=== PATIENT | female | born 1975 | race Caucasian/White ===

== ENCOUNTER 2016-11-10 12:00 | Emergency (ER) | payer OTHER ==
[2016-11-10 12:19] VITALS: TEMP 98.2
[2016-11-10] MEDS ORDERED: RALTEGRAVIR 400 MG TAB PO ONE (13:37)
--- NOTE | 2016-11-10 13:41 | EDPHY ---
H & P Stated Complaint: NEEDLE STICK R INDEX FINGER HPI/ROS: CHIEF COMPLAINT: Needlestick HISTORY OF PRESENT ILLNESS: Patient complains of needle stick to the left finger just prior to arrival. This was a syringe of lidocaine used for a dental procedure. The source patient is known to be hep C positive. The other diagnoses are uncertain. Patient says there was bleeding from the site. She immediately cleaned her hand. Her tetanus up-to-date. Minimally painful. She is only here for the possibility of exposure to blood borne illness. No other associated complaints or modifying factors. 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 Good signs of perfusion Skin: Warm and dry, no rash. Small area of ecchymosis on the left index finger consistent with her needle stick Extremities: Nontender, no pedal edema Psychiatric: Mood and affect normal DIFFERENTIAL DIAGNOSES: Including but not limited to needlestick, hep C exposure, HIV exposure, borne illness exposure MDM: 1:35 p.m. Needlestick with a source that is known to be positive for hep C. HIV status is thought to be negative but not definitively. I discussed the case with the on- call infectious disease physician Dr. Lino. She recommends laboratory studies that I have ordered. She also recommends post exposure prophylaxis for HIV including Truvada 1 tablet once daily for 30 days as well as raltegravir, 400 mg twice daily for 30 days. She would like the patient to be seen in her office in the next 1-2 days. Her office will contact the patient for follow- up. She recommends that the source pacing be drawn for HIV status. I have ordered the appropriate labs and medications. I will provide the prescriptions as well. The patient is to follow up with infectious disease and her [facility]. She is comfortable with this plan and discharged home stable condition. SUPERVISION: This patient was independently evaluated without direct examination by the attending physician. Case was discussed with attending physician. Case discussed with infectious disease, Dr. Lino Source: Patient Exam Limitations: No limitations - Personal History LMP (Females 10-55): 15-21 Days Ago Current Tetanus Diphtheria and Acellular Pertussis (TDAP): Yes Tetanus Vaccine Date: < 10 YEARS - Medical/Surgical History Hx Asthma: Yes Hx Chronic Respiratory Disease: No Hx Diabetes: No Hx Cardiac Disease: No Hx Renal Disease: No Hx Cirrhosis: No Hx Alcoholism: No Hx HIV/AIDS: No Hx Splenectomy or Spleen Trauma: No Other PMH: DENIES - Social History Smoking Status: Never smoked Constitutional: Initial Vital Signs Temperature (C) 98.2 F 11/10/16 12:17 Heart Rate 92 11/10/16 12:17 Respiratory Rate 16 11/10/16 12:17 Blood Pressure 131/73 H 11/10/16 12:17 O2 Sat (%) 97 11/10/16 12:17 O2 Delivery Mode Room Air Allergies/Adverse Reactions: SEASONAL Allergy (Uncoded 11/10/16 12:20) Home Medications: Medication Instructions Recorded Emtricitabine/Tenofovir (Tdf) 1 each PO DAILY #29 tablet 11/10/16 [Truvada 200 mg-300 mg Tablet] Raltegravir [Isentress] 400 mg PO BID #59 tab 11/10/16 Medical Decision Making - Data Points Laboratory Results: Laboratory Results 11/10/16 13:25 11/10/16 13:25 11/10/16 13:52 Hep C Genotype Amplif Undetected (Undetected) Medications Given: Discontinued Medications Emtricitabine/Tenofovir (Truvada) 1 tab PO DAILY@0800 MERLINE Stop: 05/10/17 13:36 Last Admin: 11/10/16 13:58 Dose: 1 tab Raltegravir (Isentress) 400 mg PO EDNOW ONE Stop: 11/10/16 13:38 Last Admin: 11/10/16 13:58 Dose: 400 mg Departure - Departure Disposition: Home, Routine, Self-Care Clinical Impression: Needlestick injury accident, Contact with and (suspected) exposure to viral hepatitis Condition: Good Instructions: Needle Stick Injuries (ED) Additional Instructions: 1. Follow up with infectious disease as discussed 2. Follow up with your worker's compensation [facility] for ongoing care and repeat laboratory studies 3. Medications as prescribed at the recommendation of Infectious Disease Referrals: AMRITA MELENDEZ [Other] - As per Instructions Charo Lino MD [Medical Doctor] - As per Instructions Prescriptions: Emtricitabine/Tenofovir (Tdf) [Truvada 200 mg-300 mg Tablet] 1 each PO DAILY # 29 tablet Raltegravir [Isentress] 400 mg PO BID #59 tab
[2016-11-10] MEDS ORDERED: EMTRICITABINE/TENOFOVIR 200MG/300MG TAB PO ONE (13:56)
[2016-11-10 14:00] LABS: % IMMATURE GRANULYOCYTES 0.5 % (0.0-1.1); ABSOLUTE IMMATURE GRANULOCYTES 0.05 10^3/uL (0.00-0.10); ADD DIFF? NO; ADD MORPH? NO; ADD SCAN? NO; ATYPICAL LYMPHOCYTE FLAG 0 (0-99); FRAGMENT RBC FLAG 0 (0-99); HEMATOCRIT 42.1 % (38.0-47.0); HEMOGLOBIN 14.1 g/dL (12.6-16.3); LEFT SHIFT FLG 0 (0-99); LIPEMIA HEMOLYSIS FLAG 80 (0-99); MEAN CELL HEMOGLOBIN 30.7 pg (27.9-34.1); MEAN CELL HEMOGLOBIN CONCENTR. 33.5 g/dL (32.4-36.7); MEAN CELL VOLUME 91.7 fL (81.5-99.8); MEAN PLATELET VOLUME 10.7 fL (8.7-11.7); PLATELET CLUMPS FLAG 0 (0-99); PLATELET COUNT 247 10^3/uL (150-400); RED BLOOD CELL COUNT 4.59 10^6/uL (4.18-5.33); RED CELL DISTRIBUTION WIDTH 12.1 % (11.5-15.2)
[2016-11-10 14:20] VITALS: BP 128/74; PULSE 84; RESP 18; O2SAT 98
[2016-11-10 14:39] LABS: ALANINE AMINOTRANSFERASE 29 IU/L (9-52); ALBUMIN 4.6 g/dL (3.5-5.0); ALKALINE PHOSPHATASE 71 IU/L (38-126); ANION GAP 14 mEq/L (8-16); ASPARTATE AMINOTRANSFERASE 20 IU/L (14-46); BILIRUBIN,TOTAL 0.4 mg/dL (0.1-1.4); BILIRUBIN-CONJUGATED 0.3 mg/dL (0.0-0.5); BILIRUBIN-UNCONJUGATED 0.1 mg/dL (0.0-1.1); CALCIUM 9.5 mg/dL (8.5-10.4); CARBON DIOXIDE 23 mEq/l (22-31); CHLORIDE 106 mEq/L (97-110); CREATININE 0.9 mg/dL (0.6-1.0); GLOMERULAR FILTRATION RATE > 60; GLUCOSE 95 mg/dL (70-100); POTASSIUM 3.7 mEq/L (3.5-5.2); SODIUM 143 mEq/L (134-144); TOTAL PROTEIN 7.7 g/dL (6.3-8.2)
[2016-11-11] MEDS ORDERED: EMTRICITABINE/TENOFOVIR 200MG/300MG TAB PO SCH (13:37)
[2016-11-12 13:49] LABS: HEPATITIS C GENOTYPING Undetected (Undetected)
== END 2016-11-10 14:20 | disposition home or self-care (01) ==
DX: S61.201A Unspecified open wound of left index finger without damage to nail, initial encounter (principal); W46.1XXA Contact with contaminated hypodermic needle, initial encounter
CPT/HCPCS: G0472

== ENCOUNTER 2017-07-14 13:23 | Emergency (ER) | payer OTHER ==
--- NOTE | 2017-07-14 15:22 | EDPHY ---
H & P Time Seen by Provider: 07/14/17 14:44 HPI/ROS: CHIEF COMPLAINT: Right flank pain HISTORY OF PRESENT ILLNESS: 41-year-old female presents with right flank pain. Onset of severe and sudden right flank pain this morning. Associated with diaphoresis and nausea. The pain lasted now about an hour and then completely resolved. She had 1 recurrent episode, but is now pain free. Urinary frequency and urgency throughout the day, resolved now. No prior history of kidney stones. No abdominal pain. REVIEW OF SYSTEMS: Constitutional: No fever, no chills Eyes: No visual changes ENT: No sore throat Respiratory: No cough, no shortness of breath Cardiac: No chest pain Gastrointestinal: no vomiting, no abdominal pain Musculoskeletal: No leg pain or swelling Skin: No rash Neurological: No headache, no weakness Psychiatric: No depression Past Medical/Surgical History: Denies FH: strong FH of kidney stones Social History: No recent alcohol Smoking Status: Never smoked Physical Exam: General Appearance: Alert, pleasant Eyes: Pupils equal and round, no conjunctival pallor or injection ENT, Mouth: Mucous membranes moist Neck: Normal inspection Respiratory: Lungs are clear to auscultation Cardiovascular: Regular rate and rhythm Gastrointestinal: Abdomen is soft and nontender Back: No CVA tenderness Neurological: A&O, nonfocal, normal gait Skin: Warm and dry, no rash Extremities: Normal inspection Psychiatric: Mood and affect normal Constitutional: Initial Vital Signs Temperature (C) 36.7 C 07/14/17 13:28 Heart Rate 86 07/14/17 13:28 Respiratory Rate 18 07/14/17 13:28 Blood Pressure 128/82 H 07/14/17 13:28 O2 Sat (%) 97 07/14/17 13:28 O2 Delivery Mode Room Air Allergies/Adverse Reactions: SEASONAL Allergy (Uncoded 07/14/17 13:26) Home Medications: Medication Instructions Recorded Symbicort 160-4.5 Mcg Inh (*) 07/14/17 Ventolin Hfa 07/14/17 Medical Decision Making ED Course/Re-evaluation: This patient presents with renal colic. Urinalysis reveals red blood cells. She was asymptomatic throughout her emergency department stay. Patient went to the bathroom and passed a kidney stone. Clinical presentation c/w passed kidney stone. Follow-up instructions given. Differential Diagnosis: Differential diagnosis includes though it is not limited to appendicitis, cholecystitis, diverticulitis, pyelonephritis, bowel perforation, small bowel obstruction. Departure - Departure Disposition: Home, Routine, Self-Care Clinical Impression: Kidney stone, Renal colic on right side Condition: Good Instructions: Kidney Stones (ED) Additional Instructions: I suspect that you passed a kidney stone. Return for recurrent symptoms or any concerns. Referrals: LAZARO FRANCO [Other] - As per Instructions
[2017-07-14 15:28] VITALS: BP 121/74; PULSE 66; RESP 16; TEMP 97.9; O2SAT 96
== END 2017-07-14 15:27 | disposition home or self-care (01) ==
DX: N20.0 Calculus of kidney (principal)